=== PATIENT | male | born 1990 | race Caucasian/White ===

== ENCOUNTER 2016-06-13 12:48 | Emergency (ER) | payer OTHER | END 2016-06-13 13:50 | disposition left against medical advice (07) | LOC: UCCORT 12:48 | DX: R05 Cough (principal); J02.9 Acute pharyngitis, unspecified; Z53.21 Procedure and treatment not carried out due to patient leaving prior to being seen by health care provider ==

== ENCOUNTER 2016-06-14 13:59 | Emergency (ER) | payer OTHER | END 2016-06-14 14:41 | disposition left against medical advice (07) | LOC: UCCORT 13:59 | DX: J06.9 Acute upper respiratory infection, unspecified (principal); Z53.29 Procedure and treatment not carried out because of patient's decision for other reasons ==